=== PATIENT | female | born 2000 | race Caucasian/White ===

== ENCOUNTER 2024-02-03 19:13 | Inpatient (IN) | payer OTHER, SELFPAY ==
[2024-02-03 19:25] VITALS: BP 135/80; PULSE 98; RESP 16; TEMP 36.7
[2024-02-03] MEDS: Lactated Ringers 1,000 ML 50 ML IV (19:25)
[2024-02-03 19:44] VITALS: BMI 27.9
[2024-02-03 19:51] LABS: Absolute Lymphocyte Count 1.73 X10^3/uL (0.83-4.51); Absolute Neutrophil Count 6.1 X10^3/uL (2.0-7.7); Basophil# 0.05 X10^3/uL; Basophil% 0.6 % (0-1); Eosinophil# 0.18 X10^3/uL; Eosinophils% 2.1 % (0-5); Hematocrit 30.4 % (37-47); Hemoglobin 9.3 g/dL (12.0-15.0); Lymphocyte # 1.73 X10^3/ul (0.83-4.51); Lymphocyte % 20.2 % (19-41); Mean Corp Hgb Conc 30.6 g/dL (32-36); Mean Corpuscular Hgb 24.9 pg (27.0-32.0); Mean Corpuscular Volume 81.3 fL (81-99); Mean Platelet Vol. 10.6 fl (6.2-12.0); Monocyte# 0.46 X10^3/uL; Monocyte% 5.4 % (0-10); NRBC Flagged by Analyzer 0.2 % (0-5); Neutrophil # 6.12 X10^3/uL (2.7-7.7); Neutrophil % 71.2 % (47-70); POSITIVE MORPHOLOGY YES; Platelet Count 175 K/mm3 (150-450); Red Blood Count 3.74 M/mm3 (4.2-5.4); White Blood Count 8.6 K/mm3 (4.4-11.0)
--- NOTE | 2024-02-03 20:10 | PCM.HP.OB ---
HPI - General General Date of Admission: 02/03/24 HPI Narrative RICHARD LI, is a 23 F who presents for scheduled induction of labor for preexisting Type 1 insulin dependent diabetes and polyhydramnios. complicated by thyroid disorder, anemia, asthma, and rubella non-immune status. Maternal Data Information INES Calculator Estimated Delivery Date Method Current WG Current Estimate 02/20/24 Manual 37w 4d PFSH PFSH Medical History (Updated 02/03/24 @ 20:15 by Dee Dee Goss CNM) Polyhydramnios Asthma Thyroid disorder Autoimmune disease Diabetes mellitus Home Medications ?Medication ?Instructions ?Recorded ?Last Taken ?Type Novolog Vial 1 units subcut TID 06/23/15 Unknown History Allergy/AdvReac Type Severity Reaction Status Date / Time No Known Allergies Allergy Verified 02/03/24 19:58 Surgical History H/O thyroidectomy History of endoscopy Social History Smoking Status: Former smoker History Elective abortions Hx Para 0 Spontaneous abortions Hx # Term Pregnancies Ectopic pregnancies Hx # Pregnancies Multiple births # of living children ROS Eyes Eyes: Denies blurry vision, change in vision or spots in vision ENT HEENT: Denies dizziness or headache(s) Cardiovascular Cardiovascular: Denies abdominal pain, chest pain or dyspnea Respiratory/Chest Respiratory/Chest: Denies cough, dyspnea, shortness of breath at rest or shortness of breath with exertion Gastrointestinal Gastrointestinal: Denies abdominal pain, diarrhea or vomiting Genitourinary Genitourinary: Denies change in urinary stream, difficulty urinating or dysuria Musculoskeletal Musculoskeletal: Reports none Integumentary Integumentary: Denies rash Neurologic Neurologic: Denies dizziness, headache(s), memory loss or weakness Psychiatric Psychiatric: Reports none Vital Signs Vital Signs Vital Signs: 02/03/24 19:25 02/03/24 19:25 02/03/24 19:25 Temperature Temperature Source Temporal Pulse Rate 98 Respiratory Rate Blood Pressure 135/80 H BP Systolic 135 BP Diastolic 80 02/03/24 19:25 02/03/24 19:25 Temperature 98.0 F Temperature Source Pulse Rate Respiratory Rate 16 Blood Pressure BP Systolic BP Diastolic Weight Weight: 173 lb 4.533 oz Body Mass Index (BMI) 27.9 Physical Exam Const alert, oriented x3 and no apparent distress General Appearance: cooperative Orientation / Consciousness: awake Exam Limitations: no limitations HEENT normocephalic Head and Scalp: normal to inspection Eyes General Eye: normal appearance of both eyes Neck full ROM and no lymphadenopathy Lymph Lymphatic: no lymphadenopathy noted Chest inspection of chest normal Resp normal respiratory effort, normal air movement and clear to auscultation bilaterally Effort and Inspection: able to speak in complete sentences and symmetric chest movement Cardio regular rate and regular rhythm GI normal to inspection, nondistended, normoactive bowel sounds Back/Spine normal ROM Extremity full ROM and no calf tenderness Skin no rashes or lesions noted General Skin Exam: no breakdown Neuro oriented x3 and CN's II-XII intact bilaterally Psych mental status grossly normal and thought process normal Labs Labs Labs: Antibody Screen Pending Hct Pending Hgb Pending Syphilis Total Ab Pending GBS negative Assessment & Plan (1) Rubella non-immune status, antepartum: (2) 37 weeks gestation of : (3) Diabetes mellitus: COMMENT: Type 1 on insulin (4) Autoimmune disease: COMMENT: Celiacs disease (5) Asthma: COMMENT: albuterol PRN (6) Polyhydramnios: PLAN: Plan Admit to labor and delivery GBS negative Routine labs Start IV and run fluids per orders Start Cytotec 25 mg PO every 4 hours with maximum of 6 doses Anticipate placement of espinoas bulb tomorrow morning Dr. Michel will be managing patient
[2024-02-03 20:16] LABS: Anisocytosis 2+; Differential Comment SCANNED; Differential Indicated SCAN CRITERIA MET; Hypochromasia RARE
[2024-02-03 20:17] LABS: Crenated RBC RARE
[2024-02-03 20:35] LABS: Syphilis Antibodies Non-reactive
[2024-02-03] MEDS: miSOPROStol 25 MCG TABLET PO (21:15)
[2024-02-03 21:18] LABS: Bedside Glucose 168 mg/dL (74-106)
[2024-02-03 21:18] LABS: Bedside Glucose 137 mg/dL (74-106)
--- NOTE | 2024-02-03 21:35 | PCM.PN.CNM ---
Subjective Subjective Patient denies feeling any contractions or pain. Objective Data Objective Data Vital Signs: Vital Signs Temp Pulse Resp BP 98.0 F 98 16 135/80 H 02/03/24 19:25 02/03/24 19:25 02/03/24 19:25 02/03/24 19:25 Weight: 173 lb 4.533 oz Body Mass Index (BMI) 27.9 Lab / Micro Data 02/03/24 19:25 Labs: Laboratory Results - last 24 hr 02/03/24 19:25: WBC 8.6, RBC 3.74 L, Hgb 9.3 L, Hct 30.4 L, MCV 81.3, MCH 24.9 L, MCHC 30.6 L, RDW Std Deviation TNP, RDW Coeff of Itzel TNP, Plt Count 175, MPV 10.6, Immature Gran % (Auto) 0.500, Neut % (Auto) 71.2 H, Lymph % (Auto) 20.2, [place] % (Auto) 5.4, Eos % (Auto) 2.1, Baso % (Auto) 0.6, Absolute Neuts (auto) 6.1, Absolute Lymphs (auto) 1.73, Nucleated RBC % 0.2, Differential Comment SCANNED, Hypochromasia RARE, Anisocytosis 2+, Crenated Cell RARE, Syphilis Total Ab Non-reactive, Blood Type A POSITIVE, Antibody Screen NEGATIVE 02/03/24 19:53: POC Glucose 168 H 02/03/24 20:58: POC Glucose 137 H Assessment & Plan (1) LGA (large for gestational age) fetus: COMMENT: EFW 98%, AC >99% (2) 37 weeks gestation of : (3) Rubella non-immune status, antepartum: (4) Diabetes mellitus: COMMENT: Type 1 on insulin (5) Autoimmune disease: COMMENT: Celiacs disease (6) Asthma: COMMENT: albuterol PRN (7) Polyhydramnios: COMMENT: OSBALDO 18 with 8.3 cm pocket PLAN: Plan CE - FT /Thick/ Posterior Plan remains Cytotec 25 mcg PO every 4 hours and reevaluate in the morning Dr. Michel notified of CE and is managing patient moving forward
[2024-02-04] VITALS (30 sets, daily range): BP systolic 101–140; BP diastolic 60–82; PULSE 59–131; RESP 14–16; TEMP 36.6–37.1; O2SAT 79–100
[2024-02-04] MEDS: miSOPROStol 25 MCG TABLET PO ×2 (01:22→05:20)
[2024-02-04 01:43] LABS: Bedside Glucose 99 mg/dL (74-106)
[2024-02-04 05:42] LABS: Bedside Glucose 82 mg/dL (74-106)
[2024-02-04] MEDS: LACTATED RINGERS 500 ML 999 ML IV (06:15)
--- NOTE | 2024-02-04 08:35 | PN.OBGYN_ITS ---
Subjective Subjective Patient seen at bedside for assessment per physician request. Patient slept throughout night. Denies pain. Starting to feel some cramping. Objective Data Objective Data Vital Signs: Vital Signs Temp Pulse Resp BP 98.5 F 69 16 123/82 H 02/04/24 07:33 02/04/24 08:17 02/04/24 07:33 02/04/24 08:17 Weight: 173 lb 4.533 oz Body Mass Index (BMI) 27.9 Intake & Output: Intake and Output for Last 24 Hours 02/02/24 02/03/24 02/04/24 23:59 23:59 23:59 Intake Total 500 / 500 Balance 500 / 500 Lab / Micro Data 02/03/24 19:25 Labs: Laboratory Results - last 24 hr 02/03/24 19:25: WBC 8.6, RBC 3.74 L, Hgb 9.3 L, Hct 30.4 L, MCV 81.3, MCH 24.9 L , MCHC 30.6 L, RDW Std Deviation TNP, RDW Coeff of Itzel TNP, Plt Count 175, MPV 10.6, Immature Gran % (Auto) 0.500, Neut % (Auto) 71.2 H, Lymph % (Auto) 20.2, [place] % (Auto) 5.4, Eos % (Auto) 2.1, Baso % (Auto) 0.6, Absolute Neuts (auto) 6.1, Absolute Lymphs (auto) 1.73, Nucleated RBC % 0.2, Differential Comment SCANNED, Hypochromasia RARE, Anisocytosis 2+, Crenated Cell RARE, Syphilis Total Ab Non-reactive, Blood Type A POSITIVE, Antibody Screen NEGATIVE 02/03/24 19:53: POC Glucose 168 H 02/03/24 20:58: POC Glucose 137 H 02/04/24 01:14: POC Glucose 99 02/04/24 05:12: POC Glucose 82 ROS Eyes Eyes: Denies blurry vision, change in vision or spots in vision ENT HEENT: Denies dizziness or headache(s) Cardiovascular Cardiovascular: Denies abdominal pain, chest pain or dyspnea Respiratory/Chest Respiratory/Chest: Denies cough, dyspnea, shortness of breath at rest or shortness of breath with exertion Gastrointestinal Gastrointestinal: Denies abdominal pain, diarrhea or vomiting Genitourinary Genitourinary: Denies change in urinary stream, difficulty urinating or dysuria Musculoskeletal Musculoskeletal: Reports none Integumentary Integumentary: Denies rash Neurologic Neurologic: Denies dizziness, headache(s), memory loss or weakness Physical Exam Const alert and no apparent distress General Appearance: cooperative and comfortable Exam Limitations: no limitations HEENT normocephalic Eyes General Eye: normal appearance of both eyes Neck full ROM General: normal visual inspection Chest Chest: symmetrical chest wall rise Resp normal respiratory effort and normal air movement Effort and Inspection: symmetric chest movement Auscultation: clear to auscultation bilaterally Cardio regular rate and regular rhythm GI normal to inspection, nondistended, normoactive bowel sounds Back/Spine normal ROM Extremity full ROM and no calf tenderness General Extremity: normal exam except as noted Skin no rashes or lesions noted Neuro CN's II-XII intact bilaterally Psych mental status grossly normal Assessment & Plan (1) LGA (large for gestational age) fetus: COMMENT: EFW 98%, AC >99% (2) 37 weeks gestation of : (3) Rubella non-immune status, antepartum: (4) Diabetes mellitus: COMMENT: Type 1 on insulin (5) Autoimmune disease: COMMENT: Celiacs disease (6) Asthma: COMMENT: albuterol PRN (7) Polyhydramnios: COMMENT: OSBALDO 18 with 8.3 cm pocket PLAN: Plan CE- closed NST reactive Cytotec PO 25 mcg PO every 4 hours- patient has had 3 doses and nursing to notify physician prior to next dose Pain medication when indicated Dr. Michel/Hipolito notified of assessment
[2024-02-04] MEDS: Oxytocin 15 Units/NS 250ml 15 UNITS/250 ML IV.SOLN 2 UNITS IV (09:21)
[2024-02-04 09:59] LABS: Bedside Glucose 94 mg/dL (74-106)
[2024-02-04] MEDS: Lactated Ringers 1,000 ML 999 ML IV (11:50)
[2024-02-04] MEDS: fentaNYL-bupivacaine (epidural) 100 ML BAG EPIDURAL ×3 (13:24→22:29)
[2024-02-04] MEDS: Lactated Ringers 1,000 ML 200 ML IV ×2 (13:42→19:29)
[2024-02-04 13:46] LABS: Bedside Glucose 73 mg/dL (74-106)
[2024-02-04 15:56] LABS: Bedside Glucose 63 mg/dL (74-106)
[2024-02-04 17:03] LABS: Bedside Glucose 103 mg/dL (74-106)
--- NOTE | 2024-02-04 18:14 | PN.OBGYN_ITS ---
Subjective Subjective Resting in bed comfortably, partner at bedside. Objective Data Objective Data Vital Signs: Vital Signs Temp Pulse Resp BP Pulse Ox 98.8 F 76 14 118/73 99 02/04/24 17:20 02/04/24 17:20 02/04/24 17:20 02/04/24 17:20 02/04/24 17:20 Weight: 173 lb 4.533 oz Body Mass Index (BMI) 27.9 Intake & Output: Intake and Output for Last 24 Hours 02/02/24 02/03/24 02/04/24 23:59 23:59 23:59 Intake Total 2447.73 / 2447.73 Balance 2447.73 / 2447.73 Lab / Micro Data 02/03/24 19:25 Labs: Laboratory Results - last 24 hr 02/03/24 19:25: WBC 8.6, RBC 3.74 L, Hgb 9.3 L, Hct 30.4 L, MCV 81.3, MCH 24.9 L , MCHC 30.6 L, RDW Std Deviation TNP, RDW Coeff of Itzel TNP, Plt Count 175, MPV 10.6, Immature Gran % (Auto) 0.500, Neut % (Auto) 71.2 H, Lymph % (Auto) 20.2, [place] % (Auto) 5.4, Eos % (Auto) 2.1, Baso % (Auto) 0.6, Absolute Neuts (auto) 6.1, Absolute Lymphs (auto) 1.73, Nucleated RBC % 0.2, Differential Comment SCANNED, Hypochromasia RARE, Anisocytosis 2+, Crenated Cell RARE, Syphilis Total Ab Non-reactive, Blood Type A POSITIVE, Antibody Screen NEGATIVE 02/03/24 19:53: POC Glucose 168 H 02/03/24 20:58: POC Glucose 137 H 02/04/24 01:14: POC Glucose 99 02/04/24 05:12: POC Glucose 82 02/04/24 09:18: POC Glucose 94 02/04/24 13:23: POC Glucose 73 L 02/04/24 15:35: POC Glucose 63 L 02/04/24 16:45: POC Glucose 103 Physical Exam Narrative: AROM clear fluid. 5cm/70/-1 Assessment & Plan (1) LGA (large for gestational age) fetus: COMMENT: EFW 98%, AC >99% (2) 37 weeks gestation of : (3) Rubella non-immune status, antepartum: (4) Diabetes mellitus: COMMENT: Type 1 on insulin (5) Autoimmune disease: COMMENT: Celiacs disease (6) Polyhydramnios: COMMENT: OSBALDO 18 with 8.3 cm pocket PLAN: Plan 1) Continue with active management 2) Pitocin per policy 3) AROM 4) Epidural for pain management. 5) collaborative physician and notified of patient above assessment, plan and status.
[2024-02-04 18:56] LABS: Bedside Glucose 74 mg/dL (74-106)
[2024-02-04 20:42] LABS: Bedside Glucose 76 mg/dL (74-106)
[2024-02-04] MEDS: Ondansetron 4 MG/2 ML Vial IV (21:16)
[2024-02-04] MEDS: 0.9% Saline Lock 10 ML Syringe IV (21:16)
[2024-02-04 22:43] LABS: Bedside Glucose 165 mg/dL (74-106)
[2024-02-04 22:43] LABS: Bedside Glucose 84 mg/dL (74-106)
[2024-02-04 22:43] LABS: Bedside Glucose 65 mg/dL (74-106)
[2024-02-04 23:44] LABS: Bedside Glucose 158 mg/dL (74-106)
[2024-02-04] MEDS: Acetaminophen 500 MG Tablet PO (23:52)
[2024-02-05] VITALS (24 sets, daily range): BP systolic 111–144; BP diastolic 60–85; PULSE 60–100; RESP 16–20; TEMP 36.1–36.9; O2SAT 98–100
[2024-02-05] MEDS: Lactated Ringers 1,000 ML 200 ML IV (00:26)
[2024-02-05 01:17] LABS: Bedside Glucose 135 mg/dL (74-106)
--- NOTE | 2024-02-05 01:21 | EX.PCM.OBRPT ---
Maternal Data Information INES Calculator Estimated Delivery Date Method Current WG Current Estimate 02/20/24 Manual 37w 6d Final INES: 02/20/24 Gestational age: 37 6/7 Details Operative Information Date of Procedure: 02/05/24 Pre-Operative Diagnosis: arrest of descent, failed trial of vaccum Post-Operative Diagnosis: same Classification: ASTRID Procedure Type: low transverse vascular physician #1: eBnita Mcintosh Type of Anesthesia: Epidural Anesthesiologist: Herebrt Byrd Special Medications: duramorph Antibiotic Given: Ancef 2 grams IV x1 and Zithromax 500 mg/5 mL X1 Drain: Schumacher to straight drain Estimated Blood Loss: 800 Fluids Replaced: 1000 Procedure Start Time: :43 Procedure Stop Time: 02:12 Time of Delivery: 01:45 Findings Description of Procedure: I was called to evaluate the patient. She been pushing for approximately 4 hours. No significant descent over the post hour. Position TERESA. Pelvis clinically adequate. Estimated weight less than [address] Comfortable with epidural just feeling some pressure. I discussed with the patient and her partner risk benefits and alternatives to with trial of vacuum-assisted vaginal delivery. Station was plus 3 out of 5 with significant caput. The vacuum was placed on the flexion point and vacuum created 550 mmHg. I pulled with 1 contraction and maternal pushing efforts and there was no significant descent. There were no pop offs. The head seem to descend some but at the end of the contraction there is no movement at all. Being that the patient is been diabetic with pushing 4 hours and estimated weight over 4000 g, I discussed with them the recommendation to proceed with section. Questions answered and they desire to proceed with this. The patient was taken to the operating room. She was prepped and draped in the dorsal supine position with a leftward tilt. The pillow was placed in the usual sterile fashion and the posterior vaginal area up to the toxic and the balloon was inflated with 180 cc of sterile saline. A Pfannenstiel skin incision was made approximately 2 cm above the symphysis pubis and carried through to underlying layer fascia with the scalpel. The fascia was incised incised in the midline and extended laterally with the Guzman scissors. The fascia was dissected off the rectus muscles with blunt and sharp dissection. The rectus muscles were in the midline and the peritoneum was entered bluntly. The peritoneal incision was stretched and the bladder blade was placed. The uterine incision was made in a low transverse fashion with the scalpel and extended superiorly and inferiorly with blunt dissection. The amniotic membranes were ruptured bluntly and clear amniotic fluid returned. A red rubber catheter was placed down along the head to break the suction. The 's head was brought to the incision in the flexed position and delivered without difficulty. The remainder of the was delivered with gentle traction and fundal pressure in the standard fashion. The mouth and nares were bulb suctioned. The cord was clamped and cut as the infant was stimulated. Cord clamping was delayed. The was handed off to the waiting nursing staff. The placenta was delivered with fundal massage and gentle traction in the standard fashion. The uterus was exteriorized and cleared of all clots and debris. The uterine incision was closed with #1 Vicryl in a running locked fashion. Some hemoblast was placed over the uterine incision for some small oozing and pressure was held for 2 minutes and it was hemostatic. The incision was examined and was found to be hemostatic. The uterus was placed back into the peritoneal cavity and hemostasis was again confirmed. The rectus muscles were examined and any bleeding was Bovie cauterized. The parietal peritoneum and rectus muscles were closed en bloc with an 0 Vicryl running suture. The surgical teams outer gloves were then changed. The rectus fascia was examined and any bleeding was Bovie cauterized and the rectus fascia was closed with #1 PDS suture in a running standard fashion. The subcutaneous tissue was examining and any bleeding was Bovie cauterized. The subcutaneous tissue was reapproximated with 3-0 Vicryl suture. The skin was closed in a subcuticular fashion by the SU[employer] with me present in the labor and delivery suite. I performed the remainder of the procedure with assistance. All sponge, lap, and needle counts were correct. The patient was taken to her room for recovery in a stable condition. Presentation: Positive for Vertex Amniotic Membrane Rupture Type: Artificial Amniotic Fluid Description: Clear Placental Delivery Description: Expressed Placenta Disposition: Sent to Pathology Cord Vessel Description: 3 Vessels Cord Entanglement: Around neck x 1, loose Nuchal Cord Compression: Without compression Cord Gases: ABG and VBG Infant A Gender: Female (Ari, 8lb 4 oz) (1 minute): 8 (5 minute): 9 Delayed Cord Clamping: Yes Admit VTE Documentation VTE Present on Admission: No VTE Mechan Device Prophylaxis: SCD's VTE Pharm Prophylaxis Ordered: Yes
[2024-02-05] MEDS: Sodium Citrate/Citric Acid 30 ML UDC PO (01:24)
[2024-02-05] MEDS: Cefazolin 2 GM in 0.9% Normal Saline (100mL Bag) 100 ML IV (01:27)
[2024-02-05] MEDS: Azithromycin 500 MG in Dextrose 5%-Water (250mL Bag) 250 ML 250 MG IV (01:38)
--- NOTE | 2024-02-05 02:00 | PLAC_PTH ---
PATIENT: RICHARD LI LOC: [facility] U#:[id number] AGE/SX: 23/F ROOM: WP004 RE02/03/[address]: Dr. Darlene Mcmillan MD : 2000 BED: 1 DIS: 02/08/2024 SPEC #: [id number] RECD: 02/05/24 04:35 STATUS: AMY RETc #: [id number] JANELLE: 02/05/24 02:[address]: Darlene Mcmillan DEPT: SURGICAL PATHOLOGY RECD BY: Aura Brink ENTERED: 02/05/24 09:54 SP TYPE: PLACENTA OTHR DR: Dr. Alejandro Nicolas MD Tissues: Placenta, NOS Procedures: Surgery Specimen Level V HEADER OPERATION: Primary section PRE-OP DIAGNOSIS: Diabetes TISSUE SUBMITTED: Placenta MICROSCOPIC DIAGNOSIS Placenta: Placental disc - third trimester placenta (632 gm). - Multiple areas of infarction (largest measuring 2.0cm in greatest dimension). - Multifocal chronic villitis of unknown etiology. - Increased intervillous and perivillous fibrin deposition. Membranes - no pathologic diagnosis. Umbilical cord - three blood vessels and no pathologic diagnosis. SJ: 02/07/2024 COMMENT Case has been reviewed in consultation with Dr. Ludwig who concurs with the above diagnosis. IDC:AM MICROSCOPIC DESCRIPTION Slides are reviewed. GROSS DESCRIPTION SPECIMEN: PLACENTA / CLINICAL INFORMATION: A. Weight: 3.745 kg B. Gestational Age: 37 weeks C. Sex: Female PLACENTAL WEIGHT (POST FIXATION): 632 gm PLACENTAL DIMENSIONS: 22.0 x 20.0 x 4.0 cm PLACENTAL SHAPE: Usual ovoid PLACENTAL WEIGHT FOR GESTATIONAL AGE: Over 99th percentile MEMBRANES - Present A. Insertion: Marginal B. Site of rupture from edge: at the margin of placental disc C. Color of membrane: Larose-benavides D. Abnormalities: None UMBILICAL CORD - Present A. Color: Larose-benavides B. Insertion: Paracentral C. Length: 50.0 cm D. Diameter: 1.1 to 1.5 cm E. Number of vessels: Three F. Abnormalities: None PLACENTAL DISC - Present A. Color of surface: Larose-benavides B. surface abnormalities: None C. Maternal cotyledons: Maternal surface is partly disrupted however, appears to be complete D. Attached retro placental clot: No clot E. Cut surface: Dark red and spongy F. Lesions: Sections reveal multiple larose indurated lesions with the largest lesion measuring 2.0cm in greatest dimension. G. Separate clot: Multiple blood clots weighing in aggregate 23.0gmg and measuring 7.0 x 7.0 x 2.5cm. SECTIONS SUBMITTED: (8 cassettes) 1. Membrane roll 2. Cord, maternal end, lesion 3. Cord, end, lesion 4. Placental disc, and maternal surfaces, lesion 5. Placental disc, and maternal surfaces, lesion 6. Placental disc, and maternal surfaces, lesion 7 . Placenta disc, and maternal surfaces 8. Placenta disc, and maternal surfaces, lesion /mr 02/06/2024 TC:3 CPT: 58180
--- NOTE | 2024-02-05 02:16 | POSTOPAN2_ITS ---
Anesthesia Postop Eval I Sum Postop Eval Completion status Anesthesia document: Postop Eval 1 completed: Yes Anesthesia Postop Eval I Summary Anesthesia Postop Eval I Summary: Anesthesia Postop Eval I: Assessment Summary Airway patent Yes 02/05/24 02:16 MEDICAL SUPPORT SPECIALIST.[email or web address] Spontaneous unlabored Yes 02/05/24 02:16 MEDICAL SUPPORT SPECIALIST.OT respirations Mental status Awake,Calm 02/05/24 02:16 MEDICAL SUPPORT SPECIALIST.MDOT nausea No 02/05/24 02:16 MEDICAL SUPPORT SPECIALIST.MDOT Vomiting No 02/05/24 02:16 MEDICAL SUPPORT SPECIALIST.MDOT Anesthesia Postop Eval I: Fluid Summary Crystalloid volume administer 1,000 02/05/24 02:16 MEDICAL SUPPORT SPECIALIST.MDOT (ml) Colloids volume administered ( ml) Blood Product volume administered (ml) Total IV fluid infused 1,000 02/05/24 02:16 MEDICAL SUPPORT SPECIALIST.MDOT Anesthesia Postop Eval I: Summary Notes Anesthesia Complication No 02/05/24 02:16 MEDICAL SUPPORT SPECIALIST.MDOT Anesthesia Complication Comment: Post-operative progress note Anesthesia: Postop Eval II Evaluation Mental status: Awake and Calm Pain Level: 1 nausea: Yes Vomiting: No Complications Anesthesia Complication: No
--- NOTE | 2024-02-05 02:16 | PCM.POST.ANE ---
Anesthesia: Postop Eval I Current Vital Signs Temperature: 97 F Pulse Rate: 100 Blood Pressure: 144/82 Respiratory Rate: 20 Pulse Ox: 99 Oxygen Delivery Method: Room Air Assessment Airway patent: Yes Spontaneous unlabored respirations: Yes Mental status: Awake and Calm nausea: No Vomiting: No Anesthesia Complication: No Fluid Hydration Crystalloid volume administer (ml): 1,000 Total IV fluid infused: 1,000 Progress Note Anesthesia document: Postop Eval 1 completed: Yes
--- NOTE | 2024-02-05 02:16 | PCM.POSTANE2 ---
Anesthesia Postop Eval I Sum Postop Eval Completion status Anesthesia document: Postop Eval 1 completed: Yes Anesthesia Postop Eval I Summary Anesthesia Postop Eval I Summary: Anesthesia Postop Eval I: Assessment Summary Airway patent Yes 02/05/24 02:16 MANAGER OF SUSTAINABILITY.MDWILTON Spontaneous unlabored Yes 02/05/24 02:16 MANAGER OF SUSTAINABILITY.OT respirations Mental status Awake,Calm 02/05/24 02:16 MANAGER OF SUSTAINABILITY.MDOT nausea No 02/05/24 02:16 MANAGER OF SUSTAINABILITY.MDOT Vomiting No 02/05/24 02:16 MANAGER OF SUSTAINABILITY.MDOT Anesthesia Postop Eval I: Fluid Summary Crystalloid volume administer 1,000 02/05/24 02:16 MANAGER OF SUSTAINABILITY.MDOT (ml) Colloids volume administered ( ml) Blood Product volume administered (ml) Total IV fluid infused 1,000 02/05/24 02:16 MANAGER OF SUSTAINABILITY.MDOT Anesthesia Postop Eval I: Summary Notes Anesthesia Complication No 02/05/24 02:16 MANAGER OF SUSTAINABILITY.MDOT Anesthesia Complication Comment: Post-operative progress note Anesthesia: Postop Eval II Evaluation Mental status: Awake and Calm Pain Level: 1 nausea: Yes Vomiting: No Complications Anesthesia Complication: No
[2024-02-05] MEDS: Oxytocin 15 Units/NS 250ml 15 UNITS/250 ML IV.SOLN 83 UNITS IV (02:20)
[2024-02-05] MEDS: Ondansetron 4 MG/2 ML Vial IV (02:55)
[2024-02-05] MEDS: Ketorolac 30 MG/ML Syringe IV ×4 (02:55→20:52)
[2024-02-05] MEDS: 0.9% Saline Lock 10 ML Syringe IV ×5 (02:59→20:53)
[2024-02-05] MEDS: HYDROmorphone 0.5 MG/0.5 ML SYRINGE IV ×2 (03:53→05:24)
[2024-02-05 04:38] LABS: Pathology Specimen OB SEE PATHOLOGY REPORT
[2024-02-05 04:56] LABS: Bedside Glucose 142 mg/dL (74-106)
[2024-02-05] MEDS: Lactated Ringers 1,000 ML 100 ML IV (05:25)
[2024-02-05] MEDS: Levothyroxine 88 MCG Tablet 44 MCG PO (05:55)
[2024-02-05] MEDS: Acetaminophen 500 MG Tablet 1000 MG PO ×3 (05:55→18:19)
[2024-02-05] MEDS: Senna/Docusate Sodium 1 Tablet PO (12:00)
[2024-02-05] MEDS: Enoxaparin 40 MG/0.4 ML Syringe SC (14:24)
--- NOTE | 2024-02-05 14:42 | NURSING ---
Sarah has been monitoring her blood sugar and insulin with her CGM and insulin pump.
--- NOTE | 2024-02-05 18:53 | NURSING ---
Epidural cath removed with blue tip intact
--- NOTE | 2024-02-05 21:30 | NURSING ---
pt declined MMR Vaccine. Pt educated on importance.
[2024-02-06] MEDS: Acetaminophen 500 MG Tablet 1000 MG PO ×4 (00:15→18:20)
[2024-02-06 00:20] VITALS: BP 112/65; PULSE 74; RESP 18; TEMP 36.9; O2SAT 98
[2024-02-06] MEDS: Ibuprofen 600 MG Tablet PO ×4 (02:45→21:41)
[2024-02-06 04:10] VITALS: BP 115/73; PULSE 69; RESP 13; TEMP 36.6; O2SAT 97
[2024-02-06] MEDS: Levothyroxine 88 MCG Tablet 44 MCG PO (05:59)
[2024-02-06 06:23] LABS: Hemoglobin 7.2 g/dL (12.0-15.0); Mean Corpuscular Hgb 25.3 pg (27.0-32.0); Mean Corpuscular Volume 84.2 fL (81-99); Mean Platelet Vol. 10.1 fl (6.2-12.0); POSITIVE MORPHOLOGY YES; Platelet Count 157 K/mm3 (150-450); Red Blood Count 2.85 M/mm3 (4.2-5.4); White Blood Count 9.1 K/mm3 (4.4-11.0)
[2024-02-06 06:45] LABS: Scan Indicated on CBC? Y/N YES- FLAGS NOTED
[2024-02-06 06:47] LABS: Differential Comment SCANNED
[2024-02-06 08:04] VITALS: BP 112/67; PULSE 69; RESP 16; TEMP 36.8; O2SAT 98
--- NOTE | 2024-02-06 09:02 | PN.OBGYN_ITS ---
Subjective Subjective Pain well-controlled. Average lochia. Very tired. Denies nausea or vomiting. Objective Data Objective Data Vital Signs: Vital Signs Temp Pulse Resp BP Pulse Ox O2 Del Method 98.2 F 69 16 112/67 98 Room Air 02/06/24 08:04 02/06/24 08:04 02/06/24 08:04 02/06/24 08:04 02/06/24 08:04 02/06/24 08:04 Oxygen Delivery Method Room Air Weight: 78.6 kg Body Mass Index (BMI) 27.9 Intake & Output: Intake and Output for Last 24 Hours 02/04/24 02/05/24 02/06/24 23:59 23:59 23:59 Intake Total 3447.73 / 3447.73 2860.60 / 2860.60 Output Total 250 / 250 2250 / 2250 Balance 3197.73 / 3197.73 610.60 / 610.60 Lab / Micro Data 02/06/24 06:05 Labs: Laboratory Results - last 24 hr 02/06/24 06:05: WBC 9.1, RBC 2.85 L, Hgb 7.2 L, Hct 24.0 L, MCV 84.2, MCH 25.3 L , MCHC 30.0 L, RDW Std Deviation Not Reportable, RDW Coeff of Itzel Not Reportable, Plt Count 157, MPV 10.1, Differential Comment SCANNED Physical Exam Narrative Patient is very pale Const alert General Appearance: cooperative GI GI Narrative: soft, moderate distention, fundus firm, appropriately tender. Abdominal bandage clean dry and intact Assessment & Plan (1) Acute on chronic anemia: PLAN: Postoperative day #1 status post primary section. Patient had chronic antepartum anemia. Now with superimposed acute blood loss anemia. Blood count is appropriate for blood loss during surgery. Will give IV iron x 1 and recheck CBC tomorrow. Encourage patient to push fluids. is doing well patient is working on pumping and breast-feeding. Otherwise routine postoperative care. (2) Diabetes mellitus: COMMENT: Type 1 on insulin PLAN: Continue insulin pump. Patient is doing well and has plan per endocrine for insulin. (3) deliv NOS-unsp:
[2024-02-06] MEDS: Iron Sucrose Complex 200 MG in 0.9% Normal Saline (100mL Bag) 100 ML 220 MG IV (09:39)
[2024-02-06] MEDS: 0.9% Saline Lock 10 ML Syringe IV ×2 (09:39→10:20)
--- NOTE | 2024-02-06 11:46 | NURSING ---
Received report from Ivanna Tang RN. Will assume care of patient at this time.
[2024-02-06] MEDS: Senna/Docusate Sodium 1 Tablet PO (12:40)
[2024-02-06 14:32] VITALS: BP 116/69; PULSE 80; RESP 18; TEMP 37.1; O2SAT 97
[2024-02-06] MEDS: Enoxaparin 40 MG/0.4 ML Syringe SC (14:38)
[2024-02-06] MEDS: oxyCODONE 5 MG Tablet PO (20:03)
[2024-02-06 20:10] VITALS: BP 118/74; PULSE 87; RESP 15; TEMP 36.5; O2SAT 98
[2024-02-07] MEDS: Acetaminophen 500 MG Tablet 1000 MG PO ×4 (00:18→19:33)
[2024-02-07] MEDS: 0.9% Saline Lock 10 ML Syringe IV (00:23)
[2024-02-07 02:55] VITALS: BP 114/79; PULSE 75; RESP 18; TEMP 36.4; O2SAT 97
[2024-02-07] MEDS: Ibuprofen 600 MG Tablet PO ×4 (02:58→21:01)
[2024-02-07] MEDS: oxyCODONE 5 MG Tablet PO (05:23)
[2024-02-07] MEDS: Levothyroxine 88 MCG Tablet 44 MCG PO (06:10)
[2024-02-07 06:21] LABS: Hematocrit 26.5 % (37-47); Hemoglobin 7.9 g/dL (12.0-15.0); Mean Corp Hgb Conc 29.8 g/dL (32-36); Mean Corpuscular Hgb 25.1 pg (27.0-32.0); Mean Corpuscular Volume 84.1 fL (81-99); Mean Platelet Vol. 9.5 fl (6.2-12.0); POSITIVE MORPHOLOGY YES; Platelet Count 207 K/mm3 (150-450); Red Blood Count 3.15 M/mm3 (4.2-5.4); White Blood Count 8.9 K/mm3 (4.4-11.0)
[2024-02-07 06:23] LABS: Scan Indicated on CBC? Y/N YES- FLAGS NOTED
[2024-02-07 08:24] VITALS: BP 110/68; PULSE 75; RESP 17; TEMP 36.5; O2SAT 98
[2024-02-07] MEDS: Senna/Docusate Sodium 1 Tablet PO (08:40)
--- NOTE | 2024-02-07 08:54 | PN.OBGYN_ITS ---
Subjective Subjective Doing well. Pain controlled. Mod lochia. Amb and voiding without difficulty. Baby under bili lights. Patient with CGM and insulin pump. Self managing since delivery. Objective Data Objective Data Vital Signs: Vital Signs Temp Pulse Resp BP Pulse Ox O2 Del Method 97.7 F L 75 17 110/68 98 Room Air 02/07/24 08:24 02/07/24 08:24 02/07/24 08:24 02/07/24 08:24 02/07/24 08:24 02/07/24 08:24 Oxygen Delivery Method Room Air Weight: 78.6 kg Body Mass Index (BMI) 27.9 Intake & Output: Intake and Output for Last 24 Hours 02/05/24 02/06/24 02/07/24 23:59 23:59 23:59 Intake Total 2860.60 / 2860.60 110 / 110 Output Total 2250 / 2250 Balance 610.60 / 610.60 110 / 110 Lab / Micro Data 02/07/24 06:05 Labs: Laboratory Results - last 24 hr 02/07/24 06:05: WBC 8.9, RBC 3.15 L, Hgb 7.9 L, Hct 26.5 L, MCV 84.1, MCH 25.1 L , MCHC 29.8 L, RDW Std Deviation TNP, RDW Coeff of Itzel TNP, Plt Count 207, MPV 9.5 Assessment & Plan (1) LGA (large for gestational age) fetus: COMMENT: EFW 98%, AC >99% (2) Diabetes mellitus: QUALIFIERS: Diabetes mellitus type: type 1 Diabetes mellitus complication status: without complication Qualified Code(s): E10.9 - Type 1 diabetes mellitus without complications COMMENT: Type 1 on insulin (3) Polyhydramnios: QUALIFIERS: Fetus number: single or unspecified fetus Trimester: third trimester Qualified Code(s): O40.3XX0 - Polyhydramnios, third trimester, not applicable or unspecified COMMENT: OSBALDO 18 with 8.3 cm pocket (4) 37 weeks gestation of : (5) S/P : PLAN: Plan Discharge dispo per status
[2024-02-07 13:16] VITALS: BP 123/80; PULSE 70; RESP 16; TEMP 36.9; O2SAT 98
[2024-02-07] MEDS: Enoxaparin 40 MG/0.4 ML Syringe SC (14:41)
[2024-02-07 16:00] VITALS: BP 128/79; PULSE 84; RESP 16; TEMP 37.1; O2SAT 96
[2024-02-07 20:55] VITALS: BP 119/79; PULSE 83; RESP 16; TEMP 36.9; O2SAT 98
--- NOTE | 2024-02-07 23:31 | NURSING ---
this RN spoke with dr bacon on nursing unit regarding when/if the patient should be getting blood sugars by this RN overnight at all. pt is a type I diabetic with insulin pump and manages her blood sugars independently. no blood sugars were taken with our unit's glucometer throughout the day. dr bacon states to document the patient's blood sugars from the day. this RN to also document one more in the AM before breakfast off of her pump. no need to use our glucometer. blood sugars for this pt are as follows for 02/07/24: 0600 85, 0900 92, 1300 120, 1700 227 after dinner, [address] bacon aware of results.
[2024-02-08 01:43] VITALS: BP 124/83; PULSE 80; RESP 16; TEMP 36.7; O2SAT 97
[2024-02-08] MEDS: Acetaminophen 500 MG Tablet 1000 MG PO ×3 (01:45→13:17)
[2024-02-08] MEDS: Ibuprofen 600 MG Tablet PO ×3 (03:07→15:03)
[2024-02-08] MEDS: Levothyroxine 88 MCG Tablet 44 MCG PO (05:51)
--- NOTE | 2024-02-08 07:01 | PN.OBGYN_ITS ---
Subjective Subjective Doing well. Pain controlled. Ambulating and voiding without difficulty. Blood sugars are good. Patient with CGM and insulin pump. Baby just started triple phototherapy. Breast feeding well. Objective Data Objective Data Vital Signs: Vital Signs Temp Pulse Resp BP Pulse Ox O2 Del Method 98.1 F 80 16 124/83 H 97 Room Air 02/08/24 01:43 02/08/24 01:43 02/08/24 01:43 02/08/24 01:43 02/08/24 01:43 02/08/24 01:43 Oxygen Delivery Method Room Air Weight: 78.6 kg Body Mass Index (BMI) 27.9 Intake & Output: Intake and Output for Last 24 Hours 02/06/24 02/07/24 02/08/24 23:59 23:59 23:59 Intake Total 110 / 110 Balance 110 / 110 Lab / Micro Data 02/07/24 06:05 Labs: Laboratory Results - last 24 hr 02/07/24 06:05: WBC 8.9, RBC 3.15 L, Hgb 7.9 L, Hct 26.5 L, MCV 84.1, MCH 25.1 L , MCHC 29.8 L, RDW Std Deviation TNP, RDW Coeff of Itzel TNP, Plt Count 207, MPV 9.5 ROS Constitutional Constitutional: Denies fatigue, fever(s) or malaise Eyes Eyes: Denies change in vision ENT HEENT: Denies dizziness or headache(s) Cardiovascular Cardiovascular: Denies chest pain, dyspnea or lightheadedness Respiratory/Chest Respiratory/Chest: Denies cough or dyspnea Neurologic Neurologic: Denies confusion, dizziness, headache(s), numbness or weakness Physical Exam Const alert General Appearance: cooperative GI GI Narrative: soft, moderate distention, fundus firm, appropriately tender. Abdominal bandage clean dry and intact Assessment & Plan (1) S/P : (2) Diabetes mellitus: QUALIFIERS: Diabetes mellitus type: type 1 Diabetes mellitus complication status: without complication Qualified Code(s): E10.9 - Type 1 diabetes mellitus without complications COMMENT: Type 1 on insulin PLAN: Plan Discharge to hot status
--- NOTE | 2024-02-08 07:05 | PCM.DC.SUM ---
Providers Date of Admission: 02/03/24 Date of Discharge: 02/08/24 Primary Care Physician: Dr. Alejandro Nicolas MD Reason For Visit: C SECTION Diagnosis Discharge Diagnosis (1) S/P : Status: Acute Code(s): Z98.891 - History of uterine scar from previous surgery (2) Diabetes mellitus: Status: Acute Code(s): E11.9 - Type 2 diabetes mellitus without complications Qualifiers: Diabetes mellitus type: type 1 Diabetes mellitus complication status: without complication Qualified Code(s): E10.9 - Type 1 diabetes mellitus without complications Plan Discharge to [facility] status Medications at Discharge Home Medications Novolog Vial 1 units subcut TID Type 1 Diabetic 06/23/15 insulin aspart U-100 100 unit/mL subcutaneous solution (Novolog U-100 Insulin aspart) 1 - 110 unit continuous subcutaneous infusion DAILY type ! Diabetic 02/03/24 levothyroxine 88 mcg tablet 44 mcg PO DAILY partial thyroidectomy 02/03/24 vitamin with calcium no.72-iron 27 mg-folic acid 1 mg tablet (WesTab Plus) 1 tab PO DAILY 02/03/24 Hospital Course Operations section Procedures None Summary of Care Provided Minutes Spent on Discharge: 22 Hospital Course: IOL for Type I DM. LGA and polyhydramnios. PCS after pushing for 4 hours. BG managed by patient after delivery and have been good. Breast feeding. Baby under triple therapy Weight / BMI Weight Weight: 78.6 kg Body Mass Index (BMI) 27.9 ABG / Lab / Microbiology Data 02/07/24 06:05 Laboratory: Laboratory Results - last 24 hr 02/07/24 06:05: WBC 8.9, RBC 3.15 L, Hgb 7.9 L, Hct 26.5 L, MCV 84.1, MCH 25.1 L, MCHC 29.8 L, RDW Std Deviation TNP, RDW Coeff of Itzel TNP, Plt Count 207, MPV 9.5 D/C Instructions Discharge Diet: No restrictions May resume sexual activity in: 4-6 weeks Lifting Restrictions: 20 pounds Additional Activity Instructions: Nothing in the vagina for 4-6 weeks. You may return to work/school in 6 weeks. Call your doctor if your incision/area has: Continuous Slow Oozing, Sudden Increased Bleeding, Increased Pain/ Swelling, Increased Redness and Foul Smelling Discharge Call your doctor if you observe: Fever of 101 or Higher and Using more than 1 pad per hour (for 2 hours) Suture Line Care: Avoid Pulling/Pushing and Avoid Pinching/Bending Cleanse incision/area with: Keep Dressing Clean & Dry Please Follow Up With: Darlene Mcmillan MD When: Call to make an appointment for an incision check in 1-2 [phone]. You will need a post check in 6 weeks. Meaningful Use Info Meaningful Use Meaningful Use Diagnoses (Choose all that apply): None applicable Ischemic Stroke Statin Dosing Therapy Reference: STATIN DOSE THERAPY REFERENCE: * Patients > 75 years receive moderate or high dose statin therapy. * Patients 75 years or YOUNGER should receive HIGH intensity statin dose unless contraindicated. You will be required to document reason for non-treatment if statin daily dose does not meet guidelines. HIGH DOSE STATIN THERAPY DAILY Atorvastatin > than or = to 40 mg Rosuvastatin > than or = to 20 mg Amlodipine + Atorvastatin > than or = to 2.5/40 mg Ezetimibe + Simvastatin 10/80 mg Simvastatin 80mg Discharge Plan Admission Admit Date/Time: 02/03/24 19:13 Primary Reason for Your Visit: Induction of labor Attending Provider: Darlene Mcmillan Primary Care Provider: Alejandro Nicolas Discharge Orders/Prescriptions Prescriptions: Continued Novolog Vial 1 units subcut TID Patient Comments: PT HAS A SLIDING SCALE AND INSULIN PUMP WesTab Plus 27 mg iron- 1 mg tablet 1 tab PO DAILY levothyroxine 88 mcg tablet 44 mcg PO DAILY insulin aspart U-100 [Novolog U-100 Insulin aspart] 100 unit/mL solution 1 - 110 unit continuous subcutaneous infusion DAILY Referrals / Follow Up: Alejandro Nicolas MD [Primary Care Provider] - Disposition Disposition (needs filled in before D/C Order can be placed): Home, Self Care
[2024-02-08 07:50] VITALS: BP 131/82; PULSE 68; RESP 16; TEMP 36.9; O2SAT 98
[2024-02-08] MEDS: Senna/Docusate Sodium 1 Tablet PO (09:33)
[2024-02-08 13:15] VITALS: BP 123/81; PULSE 73; RESP 16; TEMP 37; O2SAT 97
[2024-02-08] MEDS: Enoxaparin 40 MG/0.4 ML Syringe SC (13:17)
--- NOTE | 2024-02-08 15:32 | NURSING ---
Blood sugars per patient's monitor for 02/08/24 are the following: before breakfast: 95, before lunch 122.
--- NOTE | 2024-02-13 14:27 | NURSING ---
follow up phone call made, no answer, left voicemail
== END 2024-02-08 15:20 | disposition home or self-care (01) | DRG 787 ==
PROVIDERS: Advanced Practice Midwife; Admitting Provider Obstetrics & Gynecology; PCP Family Medicine; Visit Provider Obstetrics & Gynecology
DX: O24.02 Pre-existing type 1 diabetes mellitus, in childbirth (principal); D62 Acute posthemorrhagic anemia; E10.9 Type 1 diabetes mellitus without complications; J45.909 Unspecified asthma, uncomplicated; E89.0 Postprocedural hypothyroidism; Z79.4 Long term (current) use of insulin; O66.5 Attempted application of vacuum extractor and forceps; O40.3XX0 Polyhydramnios, third trimester, not applicable or unspecified; O99.52 Diseases of the respiratory system complicating childbirth; O99.284 Endocrine, nutritional and metabolic diseases complicating childbirth; Z37.0 Single live birth; O36.63X0 Maternal care for excessive fetal growth, third trimester, not applicable or unspecified; O32.4XX0 Maternal care for high head at term, not applicable or unspecified; Z3A.37 37 weeks gestation of pregnancy; Z87.891 Personal history of nicotine dependence; O99.02 Anemia complicating childbirth
CPT/HCPCS: 59025; 59050; 82962; 85025; 85027; 86780; 86850; 86900; 86901; 88307; 99221; J1756; J7120; A4216; G0378; J2405